=== PATIENT | male | born 1950 | race Caucasian/White ===

== ENCOUNTER 2018-05-28 12:47 | Emergency (ER) | payer MEDICARE, BC ==
[~2018-05-28] VITALS: Ht 182.9 cm; Wt 102.3 kg
[~2018-05-28 12:47] MED LIST: AMBIEN 10MG10 MG PO; FLOMAX 0.40.4 MG/CAP PO; HCTZ12.5TAB PO; LIPITOR 10MG10 MG PO; NORVASC 10MG10 MG PO; PAXIL 20MG20 MG PO; ZESTRIL 20MG TA20 MG PO
[2018-05-28 13:00] VITALS: BP 151/96; TEMP 98.6
[2018-05-28] MEDS ORDERED: MONODOX100 PO (15:39)
[2018-05-28 16:00] VITALS: PULSE 89
== END 2018-05-28 16:27 | disposition home or self-care (01) ==
LOC: COL.ER 12:47
DX: S62.606A Fracture of unspecified phalanx of right little finger, initial encounter for closed fracture (principal); S61.216A Laceration without foreign body of right little finger without damage to nail, initial encounter; E78.5 Hyperlipidemia, unspecified; I10 Essential (primary) hypertension; G47.00 Insomnia, unspecified; Z23 Encounter for immunization; W23.0XXA Caught, crushed, jammed, or pinched between moving objects, initial encounter; Y92.009 Unspecified place in unspecified non-institutional (private) residence as the place of occurrence of the external cause